=== PATIENT | male | born 1985 | race Two or more races ===

== ENCOUNTER 2020-10-26 21:15 | Observation (INO) | payer MEDICARE ==
[2020-10-26 21:35] VITALS: TEMP 98.2
[2020-10-26] MEDS ORDERED: SODIUM CHLORIDE 0.9% 1,000 ML IV STA ×2 (21:55→22:23)
--- NOTE | 2020-10-26 21:59 | ED ---
Abdominal Pain HPI - General Chief Complaint: Abdominal Pain Stated Complaint: ABD pain Time Seen by Provider: 10/26/20 21:55 Source: patient Mode of arrival: wheelchair Limitations: language barrier - History of Present Illness Initial Comments: This patient is a 35-year-old man with history of Crohn's disease who presents to be evaluated for diffuse abdominal pain. The patient states that his pain developed today and has been worsening for number of hours. He also complains of distention of the abdomen and nausea. Patient is a resident of [place] but is in town today for his mother's . 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 He also has history of previous left leg DVT, being maintained on eliquis and states that he has not missed any doses of his medication. He also is taking prednisone for the Crohn's disease. No fever or chills. No chest p ain, dyspnea, hemoptysis. Patient has not noted worsening or relieving factors for the abdomen. No change in bowel movements, last bowel movement was this morning. No change in urination. There is no scrotal or testicular pain or swelling. No leg symptoms. The patient states that he does have a chronic left leg ulcer since having the DVT. MD Complaint: abdominal pain Onset/Timin -: days(s) Location: diffuse Radiation: none Migration to: no migration Severity: severe Quality: fullness, sharp Consistency: constant Improves With: nothing Worsens With: nothing Associated Symptoms: nausea - Related Data Home Medications Medication Instructions Recorded Confirmed Apixaban [Eliquis] 5 mg PO BID 10/27/20 10/27/20 Atorvastatin [Lipitor] 20 mg PO HS 10/27/20 10/27/20 Baclofen [Lioresal] 10 mg PO TID PRN 10/27/20 10/27/20 Calcium Carbonate/Vitamin D3 1 cap PO DAILY 10/27/20 10/27/20 [Calcium 600 mg-D3 10 Mcg (400 Iu)] DULoxetine HCL [Cymbalta] 60 mg PO HS@1800 10/27/20 10/27/20 Ergocalciferol [Vitamin D2 (1250 1,250 mcg PO Q7D 10/27/20 10/27/20 Mcg = 49251 Iu)] Fluconazole [Diflucan] 150 mg PO DAILY 10/27/20 10/27/20 Fluocinonide [Lidex .05%] 1 applic TOPICAL DAILY 10/27/20 10/27/20 Fluticasone Nasal [place] [Flonase 1 spr EA NOSTRIL DAILY 10/27/20 10/27/20 Nasal [place]] Gabapentin 800 mg PO TID 10/27/20 10/27/20 Insulin Detemir [Levemir Flextouch] 40 units SQ HS@1800 10/27/20 10/27/20 Linagliptin [Tradjenta] 5 mg PO HS 10/27/20 10/27/20 Lisinopril [Prinivil] 10 mg PO HS 10/27/20 10/27/20 Loratadine [Claritin] 10 mg PO DAILY 10/27/20 10/27/20 Omeprazole 40 mg PO BID 10/27/20 10/27/20 Ustekinumab [Stelara] 90 mg SQ Q56D 10/27/20 10/27/20 amLODIPine [Norvasc] 2.5 mg PO DAILY 10/27/20 10/27/20 metFORMIN HCL [Glucophage] 1,000 mg PO BID 10/27/20 10/27/20 predniSONE [Deltasone] 20 mg PO BID 10/27/20 10/27/20 Allergies Allergy/AdvReac Type Severity Reaction Status Date / Time ibuprofen Allergy Unknown Verified 10/27/20 07:20 morphine Allergy Unknown Verified 10/27/20 07:20 tramadol AdvReac Unknown Verified 10/27/20 07:20 Review of Systems ROS Statement: Those systems with pertinent positive or pertinent negative responses have been documented in the HPI. ROS Other: All systems not noted in ROS Statement are negative. Constitutional: Denies: fever, chills Respiratory: Denies: cough, dyspnea Cardiovascular: Reports: palpitations. Denies: chest pain, orthopnea, edema, syncope Gastrointestinal: Reports: abdominal pain, nausea. Denies: vomiting, diarrhea, constipation, melena, hematochezia Genitourinary: Denies: dysuria, hematuria, testicular pain, testicular mass Musculoskeletal: Denies: back pain Skin: Reports: lesions (Left leg ulcer). Denies: rash Neurological: Denies: headache, weakness, numbness Past Medical History Past Medical History: Diabetes Mellitus, Hypertension Additional Past Medical History / Comment(s): crohns disease, clots in lungs/ History of Any Multi-Drug Resistant Organisms: None Reported Past Surgical History: Bowel Resection Past Psychological History: No Psychological Hx Reported Smoking Status: Never smoker Past Alcohol Use History: None Reported Past Drug Use History: None Reported General Exam Limitations: no limitations General appearance: alert, in no apparent distress Head exam: Present: atraumatic, normocephalic Eye exam: Present: normal appearance. Absent: scleral icterus, conjunctival injection ENT exam: Present: normal oropharynx Neck exam: Present: normal inspection Respiratory exam: Present: normal lung sounds bilaterally. Absent: respiratory distress, wheezes, rales, rhonchi, stridor Cardiovascular Exam: Present: normal rhythm, tachycardia, normal heart sounds. Absent: systolic murmur, diastolic murmur, rubs, gallop GI/Abdominal exam: Present: distended, tenderness (Mild diffuse tenderness), hypoactive bowel sounds. Absent: guarding, rebound, rigid, mass, pulsatile mass, hernia Extremities exam: Present: normal capillary refill, other (Approximately 4 cm diameter chronic ulcer to the posterior aspect of the left leg. Venous stasis change). Absent: tenderness, pedal edema, calf tenderness Back exam: Present: normal inspection. Absent: CVA tenderness (R), CVA tenderness (L) Neurological exam: Present: alert Skin exam: Present: warm, dry, intact, normal color. Absent: rash Course Vital Signs 10/26/20 10/26/20 10/27/20 21:33 23:43 00:48 Temperature 98.2 F Pulse Rate 127 H 128 H 125 H Respiratory 22 18 18 Rate Blood Pressure 115/66 122/82 O2 Sat by Pulse 97 99 100 Oximetry - Reevaluation(s) Reevaluation #1: 10/26/20 23:37 Search of the [employer] database does reveal concerning pattern. Medical Decision Making - Medical Decision Making Patient is 35-year-old man presenting with abdominal pain. Workup does reveal some lactic acidosis and the patient was to be admitted to observation to have serial lactic acidosis and serial abdominal exam. Case discussed with Dr. Taisha carey, who accepted admission. While I was in with an ambulance patient, the patient had informed nursing staff that he wanted leave, his mother's is today, and he signed out AMA before I was able to discuss further with him. - Lab Data Result diagrams: 10/26/20 22:07 10/26/20 22:07 Lab Results 10/26/20 10/26/20 10/26/20 Range/Units 22:07 22:07 22:07 WBC 18.3 H (3.8-10.6) k/uL RBC 5.12 (4.30-5.90) m/uL Hgb 9.8 L (13.0-17.5) gm/dL Hct 34.2 L (39.0-53.0) % MCV 66.7 L (80.0-100.0) fL MCH 19.2 L (25.0-35.0) pg MCHC 28.8 L (31.0-37.0) g/dL RDW 20.1 H (11.5-15.5) % Plt Count 690 H (150-450) k/uL MPV 6.0 Neutrophils % 86 % Lymphocytes % 9 % Monocytes % 4 % Eosinophils % 1 % Basophils % 0 % Neutrophils # 15.6 H (1.3-7.7) k/uL Lymphocytes # 1.6 (1.0-4.8) k/uL Monocytes # 0.7 (0-1.0) k/uL Eosinophils # 0.2 (0-0.7) k/uL Basophils # 0.1 (0-0.2) k/uL Manual Slide Review Performed Large Platelets Present Polychromasia Present Hypochromasia Marked Poikilocytosis Slight Anisocytosis Moderate Microcytosis Marked Fragmented RBCs Present D-Dimer (<0.60) mg/L FEU Sodium 135 L (137-145) mmol/L Potassium 4.8 (3.5-5.1) mmol/L Chloride 100 (98-107) mmol/L Carbon Dioxide 24 (22-30) mmol/L Anion Gap 11 mmol/L BUN 11 (9-20) mg/dL Creatinine 0.78 (0.66-1.25) mg/dL Est GFR (CKD-EPI)AfAm >90 (>60 ml/min/1.73 sqM) Est GFR (CKD-EPI)NonAf >90 (>60 ml/min/1.73 sqM) Glucose 195 H (74-99) mg/dL Lactic Ac Sepsis Rflx Plasma Lactic Acid Efra 4.7 H* (0.7-2.0) mmol/L Calcium 9.7 (8.4-10.2) mg/dL Total Bilirubin 0.3 (0.2-1.3) mg/dL AST 38 (17-59) U/L ALT 52 H (4-49) U/L Alkaline Phosphatase 129 H (38-126) U/L Troponin I (0.000-0.034) ng/mL Total Protein 7.3 (6.3-8.2) g/dL Albumin 4.4 (3.5-5.0) g/dL Amylase 45 (30-110) U/L Lipase 46 (23-300) U/L Urine Color Urine Appearance (Clear) Urine pH (5.0-8.0) Ur Specific [place] (1.001-1.035) Urine Protein (Negative) Urine Glucose (UA) (Negative) Urine Ketones (Negative) Urine Blood (Negative) Urine Nitrite (Negative) Urine Bilirubin (Negative) Urine Urobilinogen (<2.0) mg/dL Ur Leukocyte Esterase (Negative) 10/26/20 10/26/20 10/26/20 Range/Units 22:07 22:07 22:27 WBC (3.8-10.6) k/uL RBC (4.30-5.90) m/uL Hgb (13.0-17.5) gm/dL Hct (39.0-53.0) % MCV (80.0-100.0) fL MCH (25.0-35.0) pg MCHC (31.0-37.0) g/dL RDW (11.5-15.5) % Plt Count (150-450) k/uL MPV Neutrophils % % Lymphocytes % % Monocytes % % Eosinophils % % Basophils % % Neutrophils # (1.3-7.7) k/uL Lymphocytes # (1.0-4.8) k/uL Monocytes # (0-1.0) k/uL Eosinophils # (0-0.7) k/uL Basophils # (0-0.2) k/uL Manual Slide Review Large Platelets Polychromasia Hypochromasia Poikilocytosis Anisocytosis Microcytosis Fragmented RBCs D-Dimer 0.22 (<0.60) mg/L FEU Sodium (137-145) mmol/L Potassium (3.5-5.1) mmol/L Chloride (98-107) mmol/L Carbon Dioxide (22-30) mmol/L Anion Gap mmol/L BUN (9-20) mg/dL Creatinine (0.66-1.25) mg/dL Est GFR (CKD-EPI)AfAm (>60 ml/min/1.73 sqM) Est GFR (CKD-EPI)NonAf (>60 ml/min/1.73 sqM) Glucose (74-99) mg/dL Lactic Ac Sepsis Rflx Y Plasma Lactic Acid Efra (0.7-2.0) mmol/L Calcium (8.4-10.2) mg/dL Total Bilirubin (0.2-1.3) mg/dL AST (17-59) U/L ALT (4-49) U/L Alkaline Phosphatase (38-126) U/L Troponin I <0.012 (0.000-0.034) ng/mL Total Protein (6.3-8.2) g/dL Albumin (3.5-5.0) g/dL Amylase (30-110) U/L Lipase (23-300) U/L Urine Color Urine Appearance (Clear) Urine pH (5.0-8.0) Ur Specific [place] (1.001-1.035) Urine Protein (Negative) Urine Glucose (UA) (Negative) Urine Ketones (Negative) Urine Blood (Negative) Urine Nitrite (Negative) Urine Bilirubin (Negative) Urine Urobilinogen (<2.0) mg/dL Ur Leukocyte Esterase (Negative) 10/26/20 Range/Units 23:45 WBC (3.8-10.6) k/uL RBC (4.30-5.90) m/uL Hgb (13.0-17.5) gm/dL Hct (39.0-53.0) % MCV (80.0-100.0) fL MCH (25.0-35.0) pg MCHC (31.0-37.0) g/dL RDW (11.5-15.5) % Plt Count (150-450) k/uL MPV Neutrophils % % Lymphocytes % % Monocytes % % Eosinophils % % Basophils % % Neutrophils # (1.3-7.7) k/uL Lymphocytes # (1.0-4.8) k/uL Monocytes # (0-1.0) k/uL Eosinophils # (0-0.7) k/uL Basophils # (0-0.2) k/uL Manual Slide Review Large Platelets Polychromasia Hypochromasia Poikilocytosis Anisocytosis Microcytosis Fragmented RBCs D-Dimer (<0.60) mg/L FEU Sodium (137-145) mmol/L Potassium (3.5-5.1) mmol/L Chloride (98-107) mmol/L Carbon Dioxide (22-30) mmol/L Anion Gap mmol/L BUN (9-20) mg/dL Creatinine (0.66-1.25) mg/dL Est GFR (CKD-EPI)AfAm (>60 ml/min/1.73 sqM) Est GFR (CKD-EPI)NonAf (>60 ml/min/1.73 sqM) Glucose (74-99) mg/dL Lactic Ac Sepsis Rflx Plasma Lactic Acid Efra (0.7-2.0) mmol/L Calcium (8.4-10.2) mg/dL Total Bilirubin (0.2-1.3) mg/dL AST (17-59) U/L ALT (4-49) U/L Alkaline Phosphatase (38-126) U/L Troponin I (0.000-0.034) ng/mL Total Protein (6.3-8.2) g/dL Albumin (3.5-5.0) g/dL Amylase (30-110) U/L Lipase (23-300) U/L Urine Color Yellow Urine Appearance Clear (Clear) Urine pH 6.0 (5.0-8.0) Ur Specific [place] 1.013 (1.001-1.035) Urine Protein Trace H (Negative) Urine Glucose (UA) 1+ H (Negative) Urine Ketones Negative (Negative) Urine Blood Negative (Negative) Urine Nitrite Negative (Negative) Urine Bilirubin Negative (Negative) Urine Urobilinogen <2.0 (<2.0) mg/dL Ur Leukocyte Esterase Negative (Negative) - EKG Data -: EKG Interpreted by Me EKG shows normal: sinus rhythm, axis (normal), intervals (normal), QRS complexes (normal), ST-T waves (normal) Rate: tachycardia (Rate 138) Disposition Clinical Impression: Abdominal pain, Lactic acidosis, Leukocytosis Disposition: ADMITTED IP TO THIS HOSP Condition: Good
[2020-10-26 22:17] LABS: Anisocytosis Moderate; Basophils # (A) 0.1 k/uL (0-0.2); Basophils % (A) 0 %; Eosinophils # (A) 0.2 k/uL (0-0.7); Eosinophils % (A) 1 %; HCT 34.2 % (39.0-53.0); HGB 9.8 gm/dL (13.0-17.5); Hypochromasia Marked; Lymphocytes # (A) 1.6 k/uL (1.0-4.8); Lymphocytes % (A) 9 %; MCH 19.2 pg (25.0-35.0); MCHC 28.8 g/dL (31.0-37.0); MCV 66.7 fL (80.0-100.0); Microcytosis Marked; Monocytes # (A) 0.7 k/uL (0-1.0); Monocytes % (A) 4 %; Neutrophils # (A) 15.6 k/uL (1.3-7.7); Neutrophils % (A) 86 %; Platelet Count 690 k/uL (150-450); Poikilocytosis Slight; RBC 5.12 m/uL (4.30-5.90); RDW 20.1 % (11.5-15.5); WBC 18.3 k/uL (3.8-10.6)
[2020-10-26] MEDS ORDERED: HYDROmorphone 1 MG/ML 1 ML SYRINGE IVP STA ×2 (22:23→23:28)
[2020-10-26] MEDS ORDERED: ONDANSETRON 4 MG/2 ML VIAL IVP STA (22:23)
[2020-10-26] MEDS ORDERED: SODIUM CHLORIDE 0.9% 500 ML 500 ML IV STA ×2 (22:23→23:13)
[2020-10-26 22:27] LABS: AST 38 U/L (17-59); African American GFR (CKD) >90 (>60 ml/min/1.73 sqM); Albumin 4.4 g/dL (3.5-5.0); Alkaline Phosphatase 129 U/L (38-126); Amylase 45 U/L (30-110); Anion Gap 11 mmol/L; Blood Urea Nitrogen 11 mg/dL (9-20); Calcium 9.7 mg/dL (8.4-10.2); Carbon Dioxide 24 mmol/L (22-30); Chloride 100 mmol/L (98-107); Glucose 195 mg/dL (74-99); Lipase 46 U/L (23-300); Non-African American GFR(CKD) >90 (>60 ml/min/1.73 sqM); Potassium 4.8 mmol/L (3.5-5.1); Sodium 135 mmol/L (137-145); Total Bilirubin 0.3 mg/dL (0.2-1.3); Total Protein 7.3 g/dL (6.3-8.2)
[2020-10-26] MEDS ORDERED: SODIUM CHLORIDE 0.9% 1,000 ML IV ONE (22:32)
[2020-10-26 22:36] LABS: ALT 52 U/L (4-49)
[2020-10-26 23:46] VITALS: RESP 18
--- NOTE | 2020-10-26 23:59 | CT ---
EXAMINATION TYPE: CT abdomen pelvis wo con DATE OF EXAM: 10/26/2020 COMPARISON: None HISTORY: pt c/o abd pain. hx of chrons CT DLP: 781.3 mGycm Automated exposure control for dose reduction was used. Images obtained from the diaphragm to the floor the pelvis with no contrast. The lung bases are clear. There is no pleural effusion. Heart size is normal. There is no pericardial effusion. Liver shows no focal defect. The bile ducts are not dilated. Liver is enlarged and measures 22.5 cm i n length. Spleen is intact. The stomach is intact. There is no evidence of pancreatic mass. Gallbladd er is somewhat contracted. There is probably a single small calcified gallstone. There is no adrenal mass. Kidneys have normal size. There is no hydronephrosis. Ureters are not dilat ed. I see no definite renal calculus. There is 1 mm calcification at the cortical surface of the lowe r pole right kidney. There is no retroperitoneal adenopathy. The bladder distends smoothly. There is no inguinal hernia. There is no free fluid in the pelvis. There appears to be visualization of a short appendix that extends medially. There is no mesenteric edema. There is no ascites or free air. There is no bowel obstruction. I see n o evidence of any significant intestinal wall thickening. Exam limited by lack of oral contrast. The lumbar vertebra have normal alignment. There is vertebroplasty of L4. There is biconcave deformit y of L4 with 20% loss of height. There is similar biconcave deformity of L2 and L1 and T12. This is c onsistent with osteomalacia. The bony pelvis is intact. There is no hip dysplasia. IMPRESSION: No evidence of inflammatory bowel disease. No sign of thickened appendix. Multiple mild lumbar compression fractures. Osteomalacia. This probably a single small calcified gallstone. Hepatomegaly.
[2020-10-27 00:21] LABS: Appearance,Urine Clear (Clear); Bilirubin,Urine Negative (Negative); Blood,Urine Negative (Negative); Color,Urine Yellow; Glucose,Urine (UA) 1+ (Negative); Ketones,Urine Negative (Negative); Leukocyte Esterase,Urine Negative (Negative); Nitrite,Urine Negative (Negative); Protein,Urine Trace (Negative); Specific Gravity,Urine 1.013 (1.001-1.035); Urobilinogen,Urine <2.0 mg/dL (<2.0)
[2020-10-27 00:33] LABS: Polychromasia Present
[2020-10-27 00:34] LABS: Large Platelets Present
[2020-10-27 00:36] LABS: RBC Fragments Present
[2020-10-27] MEDS ORDERED: HYDROmorphone 0.5 MG/0.5 ML SYRINGE IVP STA (00:44)
[2020-10-27 00:49] VITALS: BP 122/82; PULSE 125
[2020-10-27] MEDS ORDERED: NALOXONE 0.4 MG/ML 1 ML VIAL IV PRN (00:58)
[2020-10-27] MEDS ORDERED: HYDROmorphone 1 MG/ML 1 ML SYRINGE IVP PRN (00:58)
[2020-10-27] MEDS ORDERED: ONDANSETRON 4 MG/2 ML VIAL IVP PRN (00:58)
== END 2020-10-27 02:29 | disposition left against medical advice (07) ==
LOC: EC 21:15 → 6NMEDSUR 10-27 00:58
PROVIDERS: ADMIT Surgery; ATTEND Surgery
DX: R10.9 Unspecified abdominal pain (principal); E87.2 Acidosis; D72.829 Elevated white blood cell count, unspecified; I10 Essential (primary) hypertension; K50.90 Crohn's disease, unspecified, without complications; E11.9 Type 2 diabetes mellitus without complications; Z53.29 Procedure and treatment not carried out because of patient's decision for other reasons; L97.929 Non-pressure chronic ulcer of unspecified part of left lower leg with unspecified severity; Z79.899 Other long term (current) drug therapy; Z79.4 Long term (current) use of insulin; Z79.01 Long term (current) use of anticoagulants; Z86.718 Personal history of other venous thrombosis and embolism; Z90.49 Acquired absence of other specified parts of digestive tract
CPT/HCPCS: 96376 ×2; 96361 ×2; 96374; 96375; 99285; 36415 ×2; 93005; 85379; 80053; 82150; 83605 ×2; 83690; 84484; 85025; 81003; 74176; G0378; J2405; J1170 ×3

== ENCOUNTER 2020-10-27 03:09 | Emergency (ER) | payer MEDICARE ==
[2020-10-27 03:42] VITALS: RESP 20
[2020-10-27 05:45] VITALS: BP 120/65; PULSE 122; TEMP 98.5
[2020-10-27] MEDS ORDERED: HYDROmorphone 0.5 MG/0.5 ML SYRINGE IVP STA (06:21)
[2020-10-27] MEDS ORDERED: SODIUM CHLORIDE 0.9% 1,000 ML IV STA (06:21)
[2020-10-27] MEDS ORDERED: ONDANSETRON 4 MG/2 ML VIAL IVP STA (06:21)
[2020-10-27] MEDS ORDERED: ONDANSETRON 4 MG/2 ML VIAL IVP PRN (06:28)
[2020-10-27] MEDS ORDERED: NALOXONE 0.4 MG/ML 1 ML VIAL IV PRN (06:28)
[2020-10-27] MEDS ORDERED: HYDROmorphone 0.5 MG/0.5 ML SYRINGE IVP PRN (06:28)
[2020-10-27] MEDS ORDERED: SODIUM CHLORIDE 0.9% 1,000 ML IV SCH (06:30)
[2020-10-27] MEDS ORDERED: ACETAMINOPHEN TAB 500 MG TAB PO STA (06:33)
--- NOTE | 2020-10-27 06:33 | ED ---
General Adult HPI - General Chief complaint: Abdominal Pain Stated complaint: Abdominal pain Time Seen by Provider: 10/27/20 06:00 Source: patient Mode of arrival: EMS Limitations: no limitations - History of Present Illness Initial comments: Patient is a 35-year-old male with a past medical history of Crohn's disease, DVT on Eliquis who presents to the emergency department for a chief complaint of abdominal pain. Patient reports the abdominal pain started yesterday. States it is in the upper abdomen and left lower quadrant. States his abdomen feels distended. He does feel nauseous. Patient reports that he had a resection one year ago secondary to his Crohn's. Patient reports that he lives out of town but is here because his mother's is today. Patient was admitted last night but left AMA because he thought he felt better could attend his mother's however realized he was still having severe abdominal pain so presented to the emergency room again. - Related Data Home Medications Medication Instructions Recorded Confirmed Apixaban [Eliquis] 5 mg PO BID 10/27/20 10/27/20 Atorvastatin [Lipitor] 20 mg PO HS 10/27/20 10/27/20 Baclofen [Lioresal] 10 mg PO TID PRN 10/27/20 10/27/20 Calcium Carbonate/Vitamin D3 1 cap PO DAILY 10/27/20 10/27/20 [Calcium 600 mg-D3 10 Mcg (400 Iu)] DULoxetine HCL [Cymbalta] 60 mg PO HS@1800 10/27/20 10/27/20 Ergocalciferol [Vitamin D2 (1250 1,250 mcg PO Q7D 10/27/20 10/27/20 Mcg = 10018 Iu)] Fluconazole [Diflucan] 150 mg PO DAILY 10/27/20 10/27/20 Fluocinonide [Lidex .05%] 1 applic TOPICAL DAILY 10/27/20 10/27/20 Fluticasone Nasal [place] [Flonase 1 spr EA NOSTRIL DAILY 10/27/20 10/27/20 Nasal [place]] Gabapentin 800 mg PO TID 10/27/20 10/27/20 Insulin Detemir [Levemir Flextouch] 40 units SQ HS@1800 10/27/20 10/27/20 Linagliptin [Tradjenta] 5 mg PO HS 10/27/20 10/27/20 Lisinopril [Prinivil] 10 mg PO HS 10/27/20 10/27/20 Loratadine [Claritin] 10 mg PO DAILY 10/27/20 10/27/20 Omeprazole 40 mg PO BID 10/27/20 10/27/20 Ustekinumab [Stelara] 90 mg SQ Q56D 10/27/20 10/27/20 amLODIPine [Norvasc] 2.5 mg PO DAILY 10/27/20 10/27/20 metFORMIN HCL [Glucophage] 1,000 mg PO BID 10/27/20 10/27/20 predniSONE [Deltasone] 20 mg PO BID 10/27/20 10/27/20 Allergies Allergy/AdvReac Type Severity Reaction Status Date / Time ibuprofen Allergy Unknown Verified 10/27/20 07:20 morphine Allergy Unknown Verified 10/27/20 07:20 tramadol AdvReac Unknown Verified 10/27/20 07:20 Review of Systems ROS Statement: Those systems with pertinent positive or pertinent negative responses have been documented in the HPI. ROS Other: All systems not noted in ROS Statement are negative. Past Medical History Past Medical History: Diabetes Mellitus, Hypertension Additional Past Medical History / Comment(s): crohns disease, clots in lungs/ History of Any Multi-Drug Resistant Organisms: None Reported Past Surgical History: Bowel Resection Past Psychological History: No Psychological Hx Reported Smoking Status: Never smoker Past Alcohol Use History: None Reported Past Drug Use History: None Reported General Exam Limitations: no limitations General appearance: alert, other (mild distress secondary to pain) Head exam: Present: atraumatic, normocephalic, normal inspection Eye exam: Present: normal appearance, PERRL, EOMI. Absent: scleral icterus, conjunctival injection, periorbital swelling ENT exam: Present: normal exam, mucous membranes moist Neck exam: Present: normal inspection, full ROM. Absent: tenderness, meningismus, lymphadenopathy Respiratory exam: Present: normal lung sounds bilaterally. Absent: respiratory distress, wheezes, rales, rhonchi, stridor Cardiovascular Exam: Present: regular rate, normal rhythm, normal heart sounds. Absent: systolic murmur, diastolic murmur, rubs, gallop, clicks GI/Abdominal exam: Present: soft, tenderness (minimal generalized abdominal tenderness without guarding or rebound), normal bowel sounds. Absent: distended, guarding, rebound, rigid Course Vital Signs 10/27/20 10/27/20 03:36 05:44 Temperature 99.9 F H 98.5 F Pulse Rate 105 H 122 H Respiratory 20 20 Rate Blood Pressure 116/74 120/65 O2 Sat by Pulse 98 100 Oximetry Medical Decision Making - Medical Decision Making Vitals are stable. Heart rate is 122. This is likely secondary to pain. I did review patient's previous ER visit from several hours ago. He did have bursitis is 18.3. Hemoglobin 9.8, no previous hemoglobin to compare to. CMP shows minimal transaminitis. Lactic acid was initially 4.7 which did reflex to 2.9. CBC CMP will be repeated today as well as lactic acid. Patient will be admitted again to Dr. Bonner's service. Patient left AMA prior to lab results. Patient was demanding q1hour pain medications. Patient states if we do not give these he will be leaving. Patient was adamantly requesting an oxycodone prescription. Patient had 2 prescriptions of [place] and oxycodone within the past week filled for 7 days and 3 days. Overall patient has a high MAPS overdose score. I do not feel comfortable writing patient a prescription for pain medications. I did encourage him to stay in the hospital where we would treat his pain adequately with Dilaudid every 3 hours however he still left. Patient is aware of the risks. - Lab Data Result diagrams: 10/27/20 06:50 10/27/20 06:50 Lab Results 10/27/20 10/27/20 Range/Units 06:50 06:50 WBC 17.7 H (3.8-10.6) k/uL RBC 4.54 (4.30-5.90) m/uL Hgb 8.3 L D (13.0-17.5) gm/dL Hct 30.7 L (39.0-53.0) % MCV 67.5 L (80.0-100.0) fL MCH 18.2 L (25.0-35.0) pg MCHC 27.0 L (31.0-37.0) g/dL RDW 19.9 H (11.5-15.5) % Plt Count 680 H (150-450) k/uL MPV 6.2 Neutrophils % 73 % Lymphocytes % 20 % Monocytes % 6 % Eosinophils % 1 % Basophils % 0 % Neutrophils # 12.9 H (1.3-7.7) k/uL Lymphocytes # 3.5 (1.0-4.8) k/uL Monocytes # 1.0 (0-1.0) k/uL Eosinophils # 0.1 (0-0.7) k/uL Basophils # 0.1 (0-0.2) k/uL Hypochromasia Marked Poikilocytosis Slight Anisocytosis Slight Microcytosis Marked Sodium 135 L (137-145) mmol/L Potassium 4.6 (3.5-5.1) mmol/L Chloride 102 (98-107) mmol/L Carbon Dioxide 27 (22-30) mmol/L Anion Gap 6 mmol/L BUN 10 (9-20) mg/dL Creatinine 1.02 (0.66-1.25) mg/dL Est GFR (CKD-EPI)AfAm >90 (>60 ml/min/1.73 sqM) Est GFR (CKD-EPI)NonAf >90 (>60 ml/min/1.73 sqM) Glucose 149 H (74-99) mg/dL Calcium 8.8 (8.4-10.2) mg/dL Total Bilirubin 0.3 (0.2-1.3) mg/dL AST 37 (17-59) U/L ALT 52 H (4-49) U/L Alkaline Phosphatase 103 (38-126) U/L Total Protein 6.5 (6.3-8.2) g/dL Albumin 3.7 (3.5-5.0) g/dL Amylase 39 (30-110) U/L Lipase 37 (23-300) U/L Disposition Clinical Impression: Abdominal pain, Lactic acidosis, Leukocytosis Disposition: Left Against Medical Advice Is patient prescribed a controlled substance at d/c from ED?: No Referrals: Nonstaff,Physician [Primary Care Provider] - 1-2 days Time of Disposition: 06:39
[2020-10-27 07:42] LABS: ALT 52 U/L (4-49); AST 37 U/L (17-59); African American GFR (CKD) >90 (>60 ml/min/1.73 sqM); Albumin 3.7 g/dL (3.5-5.0); Alkaline Phosphatase 103 U/L (38-126); Amylase 39 U/L (30-110); Anion Gap 6 mmol/L; Blood Urea Nitrogen 10 mg/dL (9-20); Calcium 8.8 mg/dL (8.4-10.2); Carbon Dioxide 27 mmol/L (22-30); Chloride 102 mmol/L (98-107); Glucose 149 mg/dL (74-99); Lipase 37 U/L (23-300); Non-African American GFR(CKD) >90 (>60 ml/min/1.73 sqM); Potassium 4.6 mmol/L (3.5-5.1); Sodium 135 mmol/L (137-145); Total Bilirubin 0.3 mg/dL (0.2-1.3); Total Protein 6.5 g/dL (6.3-8.2)
[2020-10-27 07:43] LABS: Anisocytosis Slight; Basophils # (A) 0.1 k/uL (0-0.2); Basophils % (A) 0 %; Eosinophils # (A) 0.1 k/uL (0-0.7); Eosinophils % (A) 1 %; HCT 30.7 % (39.0-53.0); Hypochromasia Marked; Lymphocytes # (A) 3.5 k/uL (1.0-4.8); Lymphocytes % (A) 20 %; MCH 18.2 pg (25.0-35.0); MCV 67.5 fL (80.0-100.0); Mean Platelet Volume 6.2; Microcytosis Marked; Monocytes % (A) 6 %; Neutrophils # (A) 12.9 k/uL (1.3-7.7); Neutrophils % (A) 73 %; Platelet Count 680 k/uL (150-450); Poikilocytosis Slight; RBC 4.54 m/uL (4.30-5.90); RDW 19.9 % (11.5-15.5); WBC 17.7 k/uL (3.8-10.6)
[2020-10-27 07:44] LABS: HGB 8.3 gm/dL (13.0-17.5)
== END 2020-10-27 07:46 | disposition left against medical advice (07) ==
LOC: EC 03:09
DX: E87.2 Acidosis (principal); D72.829 Elevated white blood cell count, unspecified; R10.10 Upper abdominal pain, unspecified; R10.32 Left lower quadrant pain; R11.0 Nausea; E11.9 Type 2 diabetes mellitus without complications; I10 Essential (primary) hypertension; Z79.01 Long term (current) use of anticoagulants; Z79.899 Other long term (current) drug therapy; Z79.51 Long term (current) use of inhaled steroids; Z88.5 Allergy status to narcotic agent; Z88.6 Allergy status to analgesic agent; Z86.718 Personal history of other venous thrombosis and embolism; Z79.52 Long term (current) use of systemic steroids; Z79.4 Long term (current) use of insulin
CPT/HCPCS: 36415; 80053; 82150; 83605; 83690; 85025; 99284; 96374; 96375; 96361; J2405; J1170